=== PATIENT | female | born 2000 | race Caucasian/White ===

== ENCOUNTER 2021-09-01 12:28 | Emergency (ER) | payer BC ==
[~2021-09-01] VITALS: Ht 157.5 cm; Wt 54.4 kg
--- NOTE | 2021-09-01 12:40 | NUR ---
PT IS IN ROOM #2B. DR COLLIER EVALUATED THE PT.
--- NOTE | 2021-09-01 13:40 | NUR ---
PT WAS D/C'd TO HOME. D/C INSTRUCTIONS GIVEN TO THE PT BY DR COLLIER.
[2021-09-01 13:41] VITALS: BP 131/69
== END 2021-09-01 13:42 | disposition home or self-care (01) ==
LOC: EDBD 12:28 → ER 12:28
DX: S09.90XA Unspecified injury of head, initial encounter (principal); W22.8XXA Striking against or struck by other objects, initial encounter; Y93.89 Activity, other specified; Y92.89 Other specified places as the place of occurrence of the external cause; Y99.8 Other external cause status
CPT/HCPCS: A4663